=== PATIENT | male | born 1955 ===

== ENCOUNTER 2021-01-08 08:21 | Observation (INO) ==
--- NOTE | 2020-12-13 12:23 | PAT Medication Instructions ---
Medication Instructions Date of Service December 13, 2020 Home Medications glucosamine sulfate 500 mg tablet (Glucosamine) 500 mg PO QAM rosuvastatin 5 mg tablet (Crestor) 5 mg PO QAM vitamins A,C,H-xtwf-aqllhs 14,320 unit-226 mg-200 unit capsule (PreserVision AREDS) 1 cap PO QAM STOP taking 2 weeks before surgery glucosamine sulfate 500 mg tablet (Glucosamine) 500 mg PO QAM vitamins A,C,L-nyxp-miscjf 14,320 unit-226 mg-200 unit capsule (PreserVision AREDS) 1 cap PO QAM Take morning of surgery With a small sip of water, OTHERWISE NOTHING TO EAT OR DRINK AFTER MIDNIGHT: rosuvastatin 5 mg tablet (Crestor) 5 mg PO QAM Other Notes If you have any questions please call us at [phone] or [phone] or [phone] or [phone]
--- NOTE | 2020-12-14 13:28 | Anesthesiology Consultation ---
Date of Service December 14, 2020 Assessment & Plan (1) Encounter for pre-operative examination: - COVID screening: Per assessment on 12/14: Travel screen negative, no known COVID-19 positive contacts or current COVID-19 related symptoms. Surgeon arrang ing preop COVID testing. Awaiting results. - Anxious: Pt anxious regarding surgery/anesthesia- requesting preop anxiolytic if possible Chart Review Chart Review: Acceptable Risk for Surgery and Patient seen in Pre Admission Testing Teaching & Discussion Pre-Anesthesia Teaching/Discussion Notes: Instructed NPO after midnight before surgery,except medications with 15 cc of water. Medication instructions provided according to the PAT guidelines. History Surgery Operation Date: 01/01/21 10:00 Proposed Procedures p Robotic Laparoscopic assisted Radical Retropubic Prostatectomy Possible Open Possible Pelvic Lymph Node Dissection, Possible Suprapubic Tube Placement - Luis Moyer MD Height/Weight Height: 6 ft 2 in Weight: 90.2 kg Allergies Allergy/AdvReac Type Severity Reaction Status Date / Time Penicillins Allergy Mild Rash Verified 12/14/20 08:35 (childhood) Medications Home Medications Medication Instructions Recorded Confirmed Last Taken glucosamine sulfate 500 mg tablet 500 mg PO QAM 12/12/20 12/13/20 Unknown (Glucosamine) rosuvastatin 5 mg tablet (Crestor) 5 mg PO QAM 12/12/20 12/13/20 Unknown vitamins A,C,L-zsjz-qaxcae 14,320 1 cap PO QAM 12/13/20 12/13/20 Unknown unit-226 mg-200 unit capsule (PreserVision AREDS) Past Medical History Medical History Arthritis High cholesterol Hx of gastric ulcer 1980s Prostate cancer plan surgical intervention Exercise / Class Metabolic Activity II 4-5 Yardwork/Stairs/Walk up hill Past Surgical History Surgical History Hx of colonoscopy Hx of prostate biopsy Hx of surgical procedure repair of spermatocelectomy Past Anesthesia History No Hx of Anesthesia Complications and No Family Hx of Anesthesia Complications History of PONV No Hx of PONV and No Hx of Motion Sickness Social History Smoking Status: Never smoker Do You Dip or Chew Tobacco: No Hx Alcohol Use: Yes Alcohol type: beer alcohol intake frequency: a few times a month Hx Substance Use: No substance use type: does not use Review of Systems Patient denies chest pain, shortness of breath, dyspnea on exertion, fever, chills, cough, wheezing, palpitations. Physical Exam Vital Signs VITALS BP 133/79 P 88 TEMP SP02 97%RA RESP 16 PHYSICAL Full cervical extension range of motion. Full TMJ range of motion. TMD 4 finger breaths Mallampati Score 1 Dentition: intact, implant right upper side Lungs: clear throughout to auscultation Cardiac: regular rate and rhythm, no murmurs noted Spine: normal Carotid arteries: negative bruit Extremities: no edema Lab Results Anesthesia Preop Results Results Anesthesia Widget: WBC 7.08 K/uL (4.8-10.8) 12/14/20 Hgb 15.3 g/dL (14.0-18.0) 12/14/20 Hct 44.8 % (42-52) 12/14/20 Plt 254 K/uL (130-400) 12/14/20 Na 140 mmol/L (136-145) 12/14/20 K 3.8 mmol/L (3.5-5.1) 12/14/20 Cl 109 mmol/L (98-107) H 12/14/20 CO2 25 mmol/L (21-32) 12/14/20 BUN 21 mg/dl (7-18) H 12/14/20 Creat 1.20 mg/dl (0.6-1.4) 12/14/20 Glucose Level 102 mg/dl (70-99) H 12/14/20 Urine Color Yellow 12/14/20 Urine Appearance Clear (Clear) 12/14/20 Urine pH 5.0 (4.5-7.5) 12/14/20 Urine Specific [place] 1.025 (1.000-1.030) 12/14/20 Urine Protein Negative (Negative) 12/14/20 Urine Glucose (UA) Negative (Negative) 12/14/20 Urine Ketones Negative (Negative) 12/14/20 Urine Blood Negative (Negative) 12/14/20 Urine Nitrite Negative (Negative) 12/14/20 Urine Bilirubin Negative (Negative) 12/14/20 Urine Urobilinogen Negative (Negative) 12/14/20 Urine Leukocyte Esterase Negative (Negative) 12/14/20 Blood Type O Positive 12/14/20 Antibody Screen NEGATIVE 12/14/20 Testing Electrocardiogram Date: 12/14/20 NSR at 81bpm. NS STA. unconfirmed report. Chest X-Ray Date: 12/14/20 Findings: + NAD
[~2021-01-08 08:21] MED LIST: HEPARIN SOD 5,000 UNIT/0.5 ML VIAL SC SCH; LACTATED RINGER'S 1,000 ML IV SCH; LR 15ML/HR IV SCH
[2021-01-08] MEDS ORDERED: ROCURONIUM BROMIDE 10 MG/ML 5 ML VIAL IV ONE ×2 (08:38→12:33)
[2021-01-08] MEDS ORDERED: DEXAMETHASONE SOD INJ 4 MG/ML VIAL ONE (08:38)
[2021-01-08] MEDS ORDERED: MIDAZOLAM HCL 1 MG/ML 2ML VIAL ONE (08:38)
[2021-01-08] MEDS ORDERED: PROPOFOL IV EMULSION 10 MG/ML 20 ML VIAL IV ONE (08:38)
[2021-01-08] MEDS ORDERED: ONDANSETRON INJ 2 MG/ML 2 ML VIAL ONE (08:38)
[2021-01-08] MEDS ORDERED: fentaNYL citrate 100 MCG/2 ML VIAL ONE ×3 (08:38→14:22)
[2021-01-08] MEDS ORDERED: LIDOCAINE 2% 2 ML VIAL/AMP(20MG/ML) INFIL ONE (08:38)
[2021-01-08] MEDS ORDERED: ePHEDrine sulfate 50 MG/ML AMP IV PRN (10:01)
[2021-01-08] MEDS ORDERED: ONDANSETRON INJ 2 MG/ML 2 ML VIAL IV PRN ×2 (10:01→16:47)
[2021-01-08] MEDS ORDERED: ATROPINE SULFATE 0.1 MG/ML 10ML SYR IV PRN (10:01)
--- NOTE | 2021-01-08 10:55 | History & Physical Bridge Note ---
Date of Service January 08, 2021 History & Physical Bridge Note I have examined the patient, reviewed the History & Physical and in the interval since the performance of the History & Physical I have noted the following changes of clinical significance: no changes noted
[2021-01-08] MEDS ORDERED: SUGAMMADEX SODIUM 200 MG/2 ML VIAL IV ONE (11:02)
[2021-01-08] MEDS ORDERED: ACETAMINOPHEN 1000 MG/100 ML IV IV ONE (11:02)
[2021-01-08] MEDS ORDERED: BUPIVACAINE 0.5 % 5 MG/1 ML MPF 30ML VIAL ONE (11:19)
[2021-01-08] MEDS ORDERED: PHENYLEPHRINE 100MCG/ML 5ML SYR ONE (12:30)
[2021-01-08] MEDS ORDERED: ePHEDrine sulfate 50 MG/ML SYR ONE (12:56)
[2021-01-08] MEDS ORDERED: BELLADONNA/OPIUM SUPP 60 MG SUPP PR ONE (13:59)
--- NOTE | 2021-01-08 14:52 | Operative Report ---
PG Post Operative Report Pre & Post Diagnosis Operation Date: 01/08/21 10:20 Pre-Op Diagnosis: Prostate Cancer Post-Op Diagnosis: Prostate Cancer I identified the patient and participated in the time-out.: Yes Procedure Operation Date: 01/08/21 10:20 Actual Procedures p Laparoscopic Robotic-Assisted Radical Retropubic Prostatectomy with Bilateral Pelvic Lymph Node Dissection(Not Applicable) - Luis Moyer MD Surgeon Sander Moyer MD Draw End Hand Kavya Pompa Estimated Blood Loss 200 Findings Consistent with Post-Op Diagnosis As per dictation Specimens 1. Periprostatic fat 2. Left pelvic lymph nodes 3. Right pelvic lymph nodes 4. Prostate and seminal vesicles Drains Heath catheter Complications None Description of Procedure The patient was identified in the preoperative holding area, appropriate informed consents were reviewed and completed, and he was transported to the operating suite. Subcutaneous heparin was administered in the pre-operative holding area. Upon arrival in the operating suite, he received appropriate antibiotics and general anesthesia. He was positioned in dorsal lithotomy, a B&O suppository was inserted after digital rectal exam, and he was prepped and draped in standard fashion. A Heath catheter was inserted in the sterile field. A Veress needle was passed per umbilicus with uniform insufflation of the abdomen to 15mmHg. He was placed in steep Trendelenburg position. A periumbilical incision was then made to accommodate a 12mm Visiport with 10mm 0degree laparoscope. Inspection of the abdomen was carried out, and there was no evidence of traumatic entry or injury secondary to the Veress needle. After confirming a clear anterior abdominal wall, ports were subsequently placed in standard robotic prostatectomy fashion without incident. To begin the robotic portion of the case, the left lateral aspect of the sigmoid was mobilized off of the left pelvic side wall to allow the pouch of Nadeem to be appropriately visualized. I then made an incision in the pouch of Nadeem, overlying the seminal vesicles. Both SVs as well as the ampullae of the vasa were entirely dissected, with the vasa transected 3cm from the prostate. The medial umbilical ligaments were then controlled with bipolar electrocautery just inferior to the umbilicus. Following cauterization, they were divided utilizing monopolar cautery. A peritoneal incision was carried from this location to the medial aspect of the internal inguinal rings bilaterally with care to avoid opening through the ring. This incision was concluded when the vas deferens was reached. Dissection of the bladder and prostate off of the posterior aspect of the pubic arch was completed allowing full visualization of the prostate. The fat overlying the prostate was removed en bloc and passed off the table as a specimen labeled "periprostatic fat". The endopelvic fascia was cleared during this portion of the procedure, and subsequently opened - first on the right and then the left. The incision through the endopelvic fascia began near the prostate-bladder junction and was carried to the apex with extreme care to preserve all lateral levator musculature as well as the periurethral musculature and sphincter complex. I additionally preserved the puboprostatic ligaments. I then controlled the DVC with a 3-0 V-lock suture in overlapping/figure of 8 fashion. The lymph node dissection was then conducted. External iliac vessels were identified on the pelvic side wall. The packet of fat and lymphatic tissue that resides just under the iliac vein was elevated and off of the vein with a split and roll technique. The packet was dissected laterally to the circumflex vein and distally to the obturator nerve which was preserved. The proximal aspect of the packet was carried towards the bifurcation of the iliac vessels. A combination of monopolar and bipolar cautery were used to assist with control. After completing the dissection on both sides, the packets were collected and passed off of the table as specimens labeled "pelvic lymph nodes". My attention then returned to the prostate, with identification of the bladder neck aided by gentle traction on the Heath catheter and lateral to medial pressure at the presumed level of the bladder neck with the robotic instruments. An anterior cystotomy was made, the Heath balloon deflated and the catheter guided through the incision to allow anterior retraction. I attempted to preserve maximal bladder neck musculature as I circumferentially dissected around the bladder neck. After incision through the posterior aspect of the mucosa, the dissection was carried through detrusor muscle until the bilateral ampullae of the vasa were identified. The previously dissected vasa and SVs were brought through the incision and used to elevated the prostate anteriorly. A posterior plane behind the prostate was then developed - splitting Denonvilliers's fascia. This dissection was carried as far as possible towards the apex as well as far as possible laterally. An incision in the lateral prostatic fascia was then made bilaterally to facilitate control of the vascular pedicles and preservation of the nerve bundles. Vasculature running along the posterior/lateral aspect of the prostate was preserved as well as the tissue containing the nerves. Of note, my nerve sparing approach was more cautious on the right than the left. The pedicles were then controlled with a series of Weck clips. The apical attachments of the prostate were remaining at that stage. The DVC was divided after control with bipolar cautery over the prostate. Continuous inspection from anterior and lateral views allowed me to closely follow the apical contour of the prostate and maximally preserve urethral length and tissue. The prostate was entirely freed at that point, and collected in an EndoCatch bag before being moved out of the field of vision. Hemostasis was confirmed and anastomosis of the bladder and urethra was completed utilizing a double armed V- Lock stitch. A new Heath catheter was inserted and the anastomosis tested with irrigation. There was no evidence of leak. A melissa style stitch was placed bilaterally to functionally marsupialize the area of the lymph node dissection. The robot was undocked, the specimen extracted through expansion of the yung- umbilical camera port. The fascia was closed with a series of 0-ethibond figure of 8 stitches. The right regulatory affairs assistant port was closed in two layers - with a figure of 8 0-Vicryl to reapproximate the fascia followed by 4-0 Monocryl to close the skin. Monocryl was used to close all other skin incisions. All wounds were dressed with Dermabond. The case was concluded and the patient taken to the PACU in stable condition. Kavya Pompa assisted from incision to closure I attest to the content of the Intraoperative Record and any orders documented therein. Any exceptions are noted below.
[2021-01-08] MEDS: fentaNYL citrate 100 MCG/2 ML VIAL IV PRN ×2 (15:11→15:16)
[2021-01-08] MEDS: HYDROmorphone INJ 1 MG/ML SYRINGE IV PRN ×4 (15:21→15:36)
[2021-01-08 15:25] LABS: Basophils # (auto) 0.01 K/uL (0-0.2); Basophils % (auto) 0.1 %; Eosinophils # (auto) 0.02 K/uL (0-0.5); Eosinophils % (auto) 0.2 %; Hemoglobin 13.8 g/dL (14.0-18.0); Immature Granulocytes # (auto) 0.02 K/uL (0.00-0.02); Immature Granulocytes % (auto) 0.2 %; Lymphocytes # (auto) 0.94 K/uL (1.2-3.4); Lymphocytes % (auto) 8.8 %; Mean Corpuscular Hemoglobin 30.5 pg (25-34); Mean Corpuscular Volume 90.7 fL (80-100); Mean Platelet Volume 9.8 fL (7.4-10.4); Monocytes # (auto) 0.13 K/uL (0.11-0.59); Monocytes % (auto) 1.2 %; Neutrophils # (auto) 9.53 K/uL (1.4-6.5); Neutrophils % (auto) 89.5 %; Platelet Count 207 K/uL (130-400); RDW Coefficient of Variation 12.8 % (11.5-14.5); RDW Standard Deviation 42.9 fL (36.4-46.3); Red Blood Count 4.52 M/uL (4.7-6.1); White Blood Count 10.65 K/uL (4.8-10.8)
[2021-01-08 15:27] LABS: Mean Corpuscular Hgb Conc 33.7 g/dL (32-36)
--- NOTE | 2021-01-08 15:47 | Anesthesiology Progress Note ---
Date of Service January 08, 2021 Anesthesia Post Procedure Vital Signs Vital Signs: Temp Pulse Pulse Resp BP Pulse Ox 01/08/21 15:40 77 17 131/83 94 01/08/21 15:30 78 20 136/82 97 01/08/21 15:20 73 12 127/83 94 01/08/21 15:10 80 18 126/79 96 01/08/21 15:00 87 17 124/77 97 01/08/21 14:53 97.9 F 93 H 17 126/81 96 01/08/21 08:46 99.1 F 80 20 163/96 H 98 Pain Intensity Lower Abdomen: Pain Intensity: 4 Transfer of Care Handoff Completed per policy Notes Mental Status: alert / awake / arousable and participated in evaluation Patient Amnestic to Procedure: Yes Nausea / Vomiting: adequately controlled Pain: adequately controlled Airway Patency, RR, SpO2: stable & adequate BP & HR: stable & adequate Hydration State: stable & adequate Anesthetic Complications: no major complications apparent and Pt Satisfied with anesthetic care
[2021-01-08 15:54] LABS: BUN Creatinine Ratio 10.9 (10-20); Calcium 8.5 mg/dl (8.5-10.1); Creatinine Clr Calc Pharmacy 76.5 ml/min; Est GFR (African American) 79.5 ml/min; Est GFR (Non-African American) 68.6 ml/min
[2021-01-08] MEDS ORDERED: oxyCODONE HCL IR 5 MG TAB (IMMEDIATE RELEASE) PO PRN ×2 (16:47)
[2021-01-08] MEDS ORDERED: MoRPHine SULFATE 2 MG/ML CARP IV PRN ×2 (16:47→16:56)
[2021-01-08] MEDS: LACTATED RINGER'S 1,000 ML IV SCH (17:32)
[2021-01-08] MEDS: ACETAMINOPHEN 325 MG TAB PO PRN (18:43)
[2021-01-08] MEDS: ceFAZolin 2000MG 2,000 MG/15 ML SYR IV SCH (20:09)
[2021-01-08] MEDS: HEPARIN SOD 5,000 UNIT/0.5 ML VIAL SQ SCH (20:10)
[2021-01-08] MEDS ORDERED: COUGH DROP (SUGAR FREE) LOZ 24 LOZ/1 BOX BUCCAL STA (21:31)
--- NOTE | 2021-01-08 22:11 | Communication Note ---
Date of Service: January 08, 2021 I was called by RN earlier today that when patient went to use the restroom he developed some lightheadedness. The patient's vital signs were checked and his blood pressure was noted to be 69/48. Patient did not fall and he was returned to bed where his blood pressure improved to 94/55 and then it was checked 1 hour later and was noted to be 125/70. There is no tachycardia noted. I visited the patient at bedside and by the time of my arrival the patient had completely recovered. I did question about the episode he does said he was having some pain at one of his surgical incisions. During this episode he did not have any shortness of breath or chest pain. He also denied any palpitations. Patient denies any significant cardiac history. Postoperatively hemoglobin and hematocrit were checked at approximately 3:00 PM today and were noted to be 13.8 and 41.0. I suspect the patient's episode was a vasovagal episode event as he recovered spontaneously without any incident. I did discuss with the patient that is important to ambulate after surgery however the next time he attempts to ambulate he should do so with the help of the nursing staff to ensure that he is steady on his feet. We will continue to monitor him throughout his hospitalization
[2021-01-09] MEDS: LACTATED RINGER'S 1,000 ML IV SCH (03:08)
[2021-01-09] MEDS: ceFAZolin 2000MG 2,000 MG/15 ML SYR IV SCH (03:20)
[2021-01-09 07:34] LABS: Basophils # (auto) 0.01 K/uL (0-0.2); Basophils % (auto) 0.1 %; Eosinophils # (auto) 0.01 K/uL (0-0.5); Eosinophils % (auto) 0.1 %; Hematocrit (blood only) 35.6 % (42-52); Hemoglobin 11.9 g/dL (14.0-18.0); Immature Granulocytes # (auto) 0.03 K/uL (0.00-0.02); Immature Granulocytes % (auto) 0.3 %; Lymphocytes # (auto) 1.91 K/uL (1.2-3.4); Lymphocytes % (auto) 17.9 %; Mean Corpuscular Hemoglobin 30.4 pg (25-34); Mean Corpuscular Hgb Conc 33.4 g/dL (32-36); Mean Platelet Volume 9.9 fL (7.4-10.4); Monocytes % (auto) 11.2 %; Neutrophils # (auto) 7.52 K/uL (1.4-6.5); Neutrophils % (auto) 70.4 %; Platelet Count 229 K/uL (130-400); RDW Coefficient of Variation 12.8 % (11.5-14.5); RDW Standard Deviation 42.7 fL (36.4-46.3); Red Blood Count 3.91 M/uL (4.7-6.1); White Blood Count 10.68 K/uL (4.8-10.8)
[2021-01-09] MEDS: HEPARIN SOD 5,000 UNIT/0.5 ML VIAL SQ SCH (07:51)
[2021-01-09 07:59] LABS: BUN Creatinine Ratio 12.9 (10-20); Calcium 8.8 mg/dl (8.5-10.1); Creatinine Clr Calc Pharmacy 80.8 ml/min; Est GFR (African American) 84.9 ml/min; Est GFR (Non-African American) 73.3 ml/min; Potassium 4.2 mmol/L (3.5-5.1)
--- NOTE | 2021-01-09 08:25 | Urology Progress Note ---
Date of Service January 09, 2021 Assessment & Plan (1) Prostate cancer: Plan: Postop day #1 status post prostatectomy Recovering appropriately Plan for diet advance, Hep-Lock IV fluid Reassess later this morning with possible discharge home this afternoon Admission and Anticipated Discharge Date Admission Date: January 08, 2021 Subjective Had one episode overnight with lightheadedness Fortunately that has resolved and he feels very well this morning He is preparing for a walk at present He has minimal pain He has passed some flatus He is tolerating the catheter His labs are appropriate His urine output has been excellent and his urine is clear Physical Exam Physical Exam: Incision appropriate Abdomen soft Urine clear Results & Data ([facility]) Vital Signs (Past 12 Hours) Vital Signs Temp Pulse Resp BP BP Pulse Ox 01/09/21 07:09 36.8 C 71 16 126/74 96 01/09/21 03:13 37 C 69 16 109/70 97 01/08/21 23:00 37.0 C 71 18 120/73 97 01/08/21 21:19 71 106/67 94 PG Care Time/CCT Total # of Minutes Spent Total Time Spent with Patient: Total time spent is greater than 50% in coordination of care (as documented) at patient's floor/unit and/or counseling patient: Coding Level of Care Code 88309 Subseq Hosp Care Lvl 2 Diagnoses Prostate cancer C61
[2021-01-09] MEDS ORDERED: ROSUVASTATIN CALCIUM 5 MG TAB PO SCH (09:00)
[2021-01-09] MEDS: ACETAMINOPHEN 325 MG TAB PO PRN (09:19)
--- NOTE | 2021-01-09 12:43 | Discharge Summary ---
Date of Service January 09, 2021 Admission HPI Per Admitting Provider See H&P Admission Exam Per Admitting Provider See H&P Principal Diagnosis Prostate Cancer Discharge Exam Constitutional well developed and well nourished; no acute distress and not ill appearing Respiratory normal respiratory effort and able to speak in complete sentences; no respiratory distress and no audible wheezes Gastrointestinal (Abdomen) Inspection/Auscultation: abdomen normal to inspection; abdomen not distended Percussion/Palpation: abdomen soft; no guarding Skin Incisions appropriate Psychiatric Orientation: alert, oriented x 3 and cooperative Affect: euthymic affect Genitourinary no CVA tenderness Landis catheter intact draining clear yellow urine. Discharge Data Allergies Allergy/AdvReac Type Severity Reaction Status Date / Time Penicillins Allergy Mild Rash Verified 01/08/21 08:45 (childhood) Procedures Performed Operation Date: 01/08/21 10:20 Actual Procedures p Laparoscopic Robotic-Assisted Radical Retropubic Prostatectomy with Bilateral Pelvic Lymph Node Dissection(Not Applicable) - Luis Moyer MD Hospital Course (1) Prostate cancer: Patient admitted status post robotic laparoscopic-assisted radical retropubic prostatectomy with bilateral pelvic lymph node dissection on 01/08/[address] Moyer. No complications post procedure. He was seen POD#1, feeling well, clinically progressing. Vital signs and post-op labs appropriate and as expected. Pain controlled, tolerating advanced diet, ambulating without dizziness. Discharged home in stable condition POD #1, home with landis catheter. Total Time Total Time Spent Total Time Spent (In Minutes): 15 Discharge Plan Discharge Items Patient Disposition: Home - Self-Care Reason For Visit: Prostate Cancer Discharge Diagnosis: prostate cancer Condition on Discharge: Good Activity: Per Instructions section Lifting: No more than 25 pounds Bathing Comment: No tub baths/soaking. Okay to shower tomorrow. Sexual Activity: Wait until after follow-up appointment Exercise/Sports: Wait until after follow-up appointment Driving/Machine Use: Do not drive while taking narcotic pain medication Non-emergency contact: Surgeon and Urologist Call non-emergency contact if: your pain is not controlled, your pain is concerning for you, your temperature is above 101, your wound has increased redness, your wound has increased drainage and your wound pain has increased Follow-up/Referrals: Luis Moyer MD [Physician] - 01/23/21 3:00 pm Abdirizak Camarena D.O. [Primary Care Provider] - 01/16/21 10:30 am [facility],Nurse [FAKE FOR SCHEDULES] - 01/14/21 9:30 am Diet: Regular Addtl Attending Provider Instructions: Please take all medications as prescribed and keep all follow-ups as scheduled. Please call our office at [phone] with any questions, concerns or need to reschedule appointments for any reason. We are happy to assist you We have sent an antibiotic to your pharmacy of choice. Please begin antibiotic as prescribed the day BEFORE your scheduled voiding trial at [facility]. Please continue antibiotic every 12 hours through the day AFTER your voiding trial. Activity: We recommend having someone with you for the first few days after surgery to help care for you. For the first 2 weeks after surgery, we would like you to get up and walk around your house. However, we recommend limit physical activity that would increase your heart rate. This will allow your body to rest and heal. Take naps if you feel tired. Don't lift anything heavier than 10 pounds, mow the law or ride a bicycle until your follow-up appointment. Please avoid long car rides. Home Care: Unless directed otherwise, drink 6 to 8 glasses of water a day (enough to keep your urine light colored). This will also help keep a healthy flow of urine. We recommend using a stool softener for the first two weeks to avoid constipation. Landis Catheter or Suprapubic Catheter care: Keep the catheter well secured with either a leg back or leg strap with large bag. Empty your bag when it's about half full. You may notice some blood in the bag. This is normal after surgery and while the catheter is in place. Use mild soap (such as Dove or Dial) and water to wash the catheter and the head of your penis daily, or more frequently if needed. Return to your normal diet, we encourage good protein intake to promote healing. You may shower as normal. Please avoid tub baths or soaking until catheter removed and incisions well healed. Wearing sweat pants while you have the catheter is recommended, they will be more comfortable. Follow-up Your follow up appointments for having your catheter removed, and follow up with your physician should already be scheduled. If you have any questions regarding this, please contact our office. Your final pathology report will be discussed at your physician follow-up appointment. Call [facility] at [phone] right away if you have any of the following: Chest pain or trouble breathing (call 911 or go to the hospital) Fever of 101F or higher, uncontrolled vomiting Heavy bleeding, clots, or bright red blood from the catheter Catheter that falls out or stops draining Foul-smelling discharge from your catheter Redness, swelling, warmth, or increased pain at your incision site Drainage, pus, or bleeding from your incision Pending Studies at Discharge: Yes Studies:: Pathology Stand-Alone Forms: My [facility] [employer], Smoking Cessation Medications and DC Order Prescriptions: New ciprofloxacin HCl 500 mg tablet 500 mg PO BID 3 Days Qty: 6 RF: 0 oxycodone-acetaminophen [Percocet] 5-325 mg tablet 1 tab PO TID PRN (Reason: pain) Qty: 14 RF: 0 docusate sodium [Colace] 100 mg capsule 100 mg PO BID Qty: 60 RF: 0 Continued rosuvastatin [Crestor] 5 mg tablet 5 mg PO QAM RF: 0 glucosamine sulfate [Glucosamine] 500 mg tablet 500 mg PO QAM RF: 0 PreserVision AREDS [id number] Capsule 1 cap PO QAM RF: 0 Discontinued lorazepam 0.5 mg tablet 0.5 mg PO DAILY PRN (Reason: anxiety) Qty: 1 RF: 0 Discharge Orders: Discharge Order (Routine); Ordered 01/09/21 Ordered By: Nidhi Newman Admission Data Admit Date/Time: 01/08/21 14:53 Attending Provider: Luis Moyer Admit Provider: Luis Moyer Primary Care Provider: Abdirizak Camarena Other Interventions: Discharge Summary Assessment (RN) Last Done: 01/09/21 13:11 Coding Level of Care Code D/C DAY MANAGEMENT <30 MINS Diagnoses Prostate cancer C61
== END 2021-01-09 15:40 | disposition home or self-care (01) ==
LOC: ASU 08:21 → 3N 14:53 → INTOOBSV 14:53